=== PATIENT | female | born 1945 | race Caucasian/White ===

== ENCOUNTER 2018-11-10 05:20 | Inpatient (IN) | payer OTHER, MEDICARE ==
[2018-11-01 13:15] LABS: HEMATOCRIT 43.4 % (37.0-47.0); HEMOGLOBIN 14.5 gm/dL (12.0-15.0); MCH 29.6 pg (26.0-34.0); MCHC 33.4 g/dL (28.0-37.0); MCV 88.7 fL (80.0-100.0); RBC 4.89 mil/uL (4.20-5.00); WBC 8.7 thou/uL (4.0-11.0)
[2018-11-01 13:18] LABS: URINE BILIRUBIN NEGATIVE (Negative); URINE BLOOD NEGATIVE (Negative); URINE CLARITY CLEAR; URINE COLOR YELLOW; URINE GLUCOSE-RANDOM* NEGATIVE (Negative); URINE KETONES NEGATIVE (Negative); URINE LEUKOCYTES-REFLEX TRACE (Negative); URINE NITRITE-REFLEX NEGATIVE (Negative); URINE PROTEIN (DIPSTICK) NEGATIVE (Negative); URINE SPECIFIC GRAVITY <= 1.005 (1.005-1.035); URINE UROBILINOGEN 0.2 E.U./dl (0.2-1.0)
[2018-11-01 13:23] LABS: ALBUMIN 4.1 g/dL (3.4-5.0); CALCIUM 10.3 mg/dL (8.5-10.1); CREATININE 0.7 mg/dL (0.6-1.0); POTASSIUM 4.1 mmol/L (3.5-5.1)
[2018-11-01 13:27] LABS: PROTIME 10.2 Seconds (9.3-11.4)
--- NOTE | 2018-11-01 16:12 | EKG ---
[place] [address] [facility] [place] [address] ELECTROCARDIOGRAM REPORT Name: ART NICOLE Room #: [facility]#: [id number] Admission: Attend Phys: Cristian Malcolm MD Discharge: Date of : 47 Report #: [id number] THIS REPORT FOR: //name// [facility] Test Date: 2018-11-01 Test Time: 13:21:58 Pat Name: ART NICOLE Department: Room: Gender: F [employer]: vonnie : 1945 Requested By: Cristian Malcolm Order Number: [id number] MD: Guanakito Ventura Measurements Intervals [place] Rate: 83 P: 54 MD: 152 QRS: 7 QRSD: 91 T: 29 QT: 380 QTc: 447 Interpretive Statements Sinus rhythm Ventricular trigeminy No previous ECG available for comparison Electronically Signed On 11-01-2018 16:12:15 CDT by Guanakito Ventura [email or web address] <ELECTRONICALLY SIGNED> By: Guanakito Ventura MD 11/01/18 1612 1321 1321 Guanakito Ventura MD /[place]
[2018-11-10] VITALS (7 sets, daily range): BP systolic 140–162; BP diastolic 67–82
[~2018-11-10] VITALS: Ht 162.6 cm; Wt 68.9 kg
[~2018-11-10 05:20] MED LIST: ASPIR 8181 M1 PO; CO Q-10100 MG PO; FEMARA2.5 MG PO; GLUCOSAMINE HC500 MG PO; HYDROCHLOROTH12.5 M1 PO; IBUPROFEN 200200 M1 PO; LISINOPRIL40 MG PO; TURMERIC500 M2 PO; VITAMIN B-12500 MCG PO; VITAMIN D-32000 UNIT PO
[2018-11-11 00:30] VITALS: BP 118/57
[2018-11-11 04:26] VITALS: BP 127/69
--- NOTE | 2018-11-11 05:39 | NUR ---
RECEIVED REPORT FROM FRANDY DAY SHIFT RN.PATIENT A/O X 4.COMPLAIN OF LEFT KNEE PAIN.NORCO GIVEN.VERBALIZED PAIN RELIEF.ICEPACK TO INCISION AREA.HEMOVAC NOTED WITH DARK RED DRAINAGE.PT STATES SHE WILL WAIT FOR PT IN AM TO GET HER UP AND WANTS PAIN MEDS BEFORE GETTING UP WITH PT.WILL MONITOR AND CONTINUE POC.
[2018-11-11 07:07] LABS: HEMATOCRIT 32.2 % (37.0-47.0); HEMOGLOBIN 10.7 gm/dL (12.0-15.0); MCH 29.9 pg (26.0-34.0); MCHC 33.4 g/dL (28.0-37.0); MCV 89.6 fL (80.0-100.0); RBC 3.59 mil/uL (4.20-5.00); RDW 14.3 % (10.5-14.5); WBC 12.2 thou/uL (4.0-11.0)
[2018-11-11 07:36] VITALS: BP 127/55
--- NOTE | 2018-11-11 07:48 | O ---
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 PROCEDURE: Left total knee arthroplasty. SURGEON: Cristian Malcolm MD INDICATIONS: This active, independent 73-year-old female complains of progressive left knee pain. Clinical and radiographic evaluation revealed mild varus malalignment with medial compartment narrowing and spurring in all 3 compartments. Findings are consistent with rather severe end-stage degenerative osteoarthritis. She has not seen improvement with time and conservative management. She has elected to go ahead with left total knee arthroplasty. DESCRIPTION OF PROCEDURE: The patient was taken to the operating room where she was placed under general anesthesia. Prophylactic intravenous antibiotics were administered. A left femoral nerve block was also applied. The left lower extremity was meticulously prepped and draped and a thigh tourniquet inflated to 300 mmHg. An anterior longitudinal skin incision was made and carried through the medial retinaculum. The patella was reflected laterally. Marked degenerative change in all 3 compartments was noted. The Finley and Nephew knee system was utilized. The femur seemed best suited for a size 5 femoral component. The tibia was best suited for a size 4 tibial component. Sufficient bone was removed to correct the flexion contracture and varus malalignment. A 9 mm polyethylene insert fit nicely and resulted in full knee extension and flexion well beyond 130 degrees with good stability on varus and valgus stress. The patellar surface was resected and a 32 mm patellar button fit nicely. Appropriate anchor holes were created. The trial components were removed. The bony surfaces were thoroughly irrigated and dried. The intramedullary canal was blocked with bone block on both the femoral and tibial sides. Methyl methacrylate cement was mixed and injected into the porous surface of the proximal tibia. The Finley and Nephew size 4 Pari II left tibial baseplate was then applied. It was inserted in appropriate position and it seated nicely and appeared to be secure. Excess cement was removed from around its margin. A 9 mm Legion cruciate retaining high flexion polyethylene liner was snapped into [address] [address] OPERATIVE REPORT Name: ART NICOLE Room #: 461-P [facility] IN ..#: [id number] Admission: 11/10/18 Attend Phys: Cristian Malcolm MD Discharge: Date of : 47 Report #: [id number] It seated nicely and appeared to be secure. A size-5 left femoral component was then impacted on to the distal femur. Some cement was used distally here as well as the bone is mildly osteoporotic. This component also seemed to seat nicely and appeared stable. Excess cement was removed from around its margin. The patella was inserted using appropriate anchor holes and cement with a patellar clamp. Excess cement was removed from around its margin. Once the cement had fully cured, range of motion, alignment, and stability were assessed and felt to be satisfactory. She does have mild internal rotation of the tibia, which is a preexisting issue; however, her varus malalignment is nicely improved and the knee extends fully and flexes beyond 130 degrees without difficulty. The patella seemed to track nicely. At this point, the tourniquet was deflated. A single Hemovac was left in the wound exiting through a separate stab incision. She is noted to have moderate generalized oozing and she had noted preoperatively that she does seem to bleed and bruise easily. This may be related to her history of aspirin or anti-inflammatory use. Some hemostasis with the cautery was established, but there was still mild oozing throughout the wound during this portion of the procedure. The fascia was closed with multiple #1 Vicryl sutures. The deeper subcutaneous tissues were closed with 0 Monocryl and the more superficial layer was closed with 2-0 Monocryl. The skin was closed with skin dennis. A sterile dressing was applied. The patient was awakened and returned to recovery room in good condition. <ELECTRONICALLY SIGNED> By: Cristian Malcolm MD 11/11/18 0748 1240 1513 Cristian Malcolm MD /nt
[2018-11-11 07:59] LABS: CALCIUM 8.9 mg/dL (8.5-10.1); CREATININE 0.7 mg/dL (0.6-1.0); POTASSIUM 4.6 mmol/L (3.5-5.1)
--- NOTE | 2018-11-11 14:32 | NUR ---
PT ADMITTED RELATED TO LT TOTAL KNEE REPLACEMENT. CM REVIEWED CAHRT AND SPOKE WITH CARE TEAM. CM MET WITH PT AT BEDSIDE THIS DAY. PT IS A&O X4. CM ROLE INTRODCUED. PT INDICATED SHE LIVES IN A DUPLEX ALONE WITH 2 STEPS TO ENTER AND NO STEPS INSIDE. PT INDICATED HER DTR LIVES 3 MINS FROM HER AND THAT SHE IS ABLE TO ASSIST HER UPON DC. 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 PT WILL NEED A FWW FOR USE UPON DC. PT STATED SHE HAS AN OP THERAPY APPINTMENT SET UP AT [facility] PT THURSDAY AT 11:30. PT'S PCP IS LELA GUNTER. CM TO FOLLOW INIDICATED WITH DC PLANNING.
[2018-11-11 14:58] VITALS: BP 130/98
[2018-11-11 19:44] VITALS: BP 153/68
[2018-11-11 20:00] VITALS: BP 153/68
--- NOTE | 2018-11-11 20:54 | NUR ---
ASSUMED CARE OF PT AT APPROX 1000. PT IS ALERT AND ORIENTED X4 AND ABLE TO MAINTAIN 02 SAT >90 ON RA. NAD NOTED. PAIN MEDS ADMINISTERED ORDERED UPON REQUEST. ASSESSMENT CHARTED. PT NEEDS HOME MEDICATIONS RESTARTED. MED REC IS COMPLETE. PT HAS BEEN UPDATED ON POC.
[2018-11-12 04:12] VITALS: BP 135/53
--- NOTE | 2018-11-12 04:42 | NUR ---
ASSESSMENT: PT REMAIN ALERT AND ORIENT TIMES FOUR. DOES HAVE ANXIETY ABOUT MOVING HER LEFT LEG, AND MAKING SENSE OF HER HOSPITAL STAY. PRN PAIN MEDICATION WAS GIVEN REGULARLY AND PT BEGAN TO RATE HER PAIN ON A LOWER SCALE. LEFT KNEE HEMOVAC WAS REMOVED AT 2330 WHILE THE PT WAS SITTING UP IN THE CHAIR. THE ORDER WAS WRITTEN AT 0804 TO HAVE DRAIN REMOVED. DAY SHIFT RN'S DID NOT REMOVE THE DRAIN BECAUSE THE PT WAS SITTING UP IN THE CHAIR AND THEY WERE WAITING FOR THE PT TO GET IN BED. THE OUTPUT WAS SS, 80ML OF DRAINAGE WAS MEASURED AND A PRESSURE DRESSING WAS PLACED OF THE INSERTION SITE. THTH WERE REPLACED AND WERE COMFORTABLE PER PT. VSS, AFEBRILE. PT REQUESTED TO REMAIN IN THE CHAIR ALL NOC LONG. BEAR DRESSING C/D/I. GOOD PROGRESS TOWARDS DC GOALS, WILL CONTINUE TO MONITOR.
[2018-11-12 05:17] LABS: HEMATOCRIT 29.5 % (37.0-47.0); MCH 30.2 pg (26.0-34.0); MCV 88.8 fL (80.0-100.0); RBC 3.32 mil/uL (4.20-5.00); WBC 10.8 thou/uL (4.0-11.0)
[2018-11-12 08:00] VITALS: BP 136/69
--- NOTE | 2018-11-12 13:21 | NUR ---
Received awake on bed. Due medications given as prescribed, able to swallow tablets w/o difficulty. A+Ox4. On room air. With SL at R FA. S/P L Total knee- BEAR dressing in place, C/D/I. Able to ambulate using walker, gait belt and moderate assist. Complained of pain, PRN pain meds given as prescribed. Had PT session today, tolerating well. Reynold stockings and ice packs in place. Vital signs stable. Able to use bedside commode to pass urine.
[2018-11-12 15:00] VITALS: BP 141/78
--- NOTE | 2018-11-12 16:24 | NUR ---
IT IS ANTICPATED THAT PT WILL LIKELY DC OVER THE WEEKEND. PT WAS ISSUED A FWW FOR HOME USE BY PROVIDER [employer]US. PT IS ESTABLISHED WITH AN OP PT APPOINTMENT THURSDAY. CM ABLE TO ASSIST SHOULD ANY NEEDS ARISE.
[2018-11-12 20:25] VITALS: BP 160/85
[2018-11-13 03:40] VITALS: BP 165/88
--- NOTE | 2018-11-13 04:10 | NUR ---
ASSUMED CARE AROUND 1900. AXOX4. THIGH HIGH DARIELA ON SCD ON. DRESSING ON L KNEE CDI. NO S/S ACUTE DISTRESS NOTED OR REPORTED AT THIS TIME. WILL CONT TO MONITOR FOR ANY CHANGES IN CONDITION.
[2018-11-13 05:42] LABS: HEMOGLOBIN 10.1 gm/dL (12.0-15.0); MCH 30.3 pg (26.0-34.0); MCHC 33.8 g/dL (28.0-37.0); MCV 89.5 fL (80.0-100.0); RBC 3.35 mil/uL (4.20-5.00); RDW 14.2 % (10.5-14.5); WBC 8.3 thou/uL (4.0-11.0)
[2018-11-13 07:24] VITALS: BP 154/89
[2018-11-13 09:00] VITALS: BP 154/89
[2018-11-13 15:16] VITALS: BP 155/83
--- NOTE | 2018-11-13 16:10 | NUR ---
Received awake on bed. Due medications given as prescribed. A+Ox4. On room air. With BEAR dressing in place at L knee, C/D/I, no signs of infection noted. Able to go to the bathroom using walker, gait belt, AO1- minimum assist. Complained of pain, due PRN pain medications given as prescribed. With DARIELA socks and ice packs in place. Pt able to sit out on chair. Pt seen by Dr Malcolm, pt to go home tomorrow, discharge summary and instructions put in, discharge orders to be ordered if pt is ok to go home tomorrow. Assisted in ADLs. With SL at R FA- intact.
[2018-11-13 19:47] VITALS: BP 137/72
--- NOTE | 2018-11-14 04:51 | NUR ---
ASSUMED CARE AROUND 1900. AXOX4. L KNEE BEAR DRESSING CDI. NO S/S ACUTE DISTRESS NOTED OR REPORTED AT THIS TIME. WILL CONT TO MONITOR FOR ANY CHANGES IN CONDITION.
[2018-11-14 05:18] LABS: HEMOGLOBIN 9.7 gm/dL (12.0-15.0); MCH 30.1 pg (26.0-34.0); MCHC 33.6 g/dL (28.0-37.0); MCV 89.5 fL (80.0-100.0); RBC 3.24 mil/uL (4.20-5.00); RDW 13.9 % (10.5-14.5); WBC 7.9 thou/uL (4.0-11.0)
[2018-11-14 07:47] VITALS: BP 162/83
[2018-11-14 14:38] VITALS: BP 162/83
--- NOTE | 2018-11-14 15:30 | NUR ---
PT PROGRESSING WELL. WORKED W/ THERAPY TWICE TODAY AND WALKED STEPS. BEAR DSNG INTACT W/ SM DRIED SPOT. EATING AND DRINKING WELL. DTR HERE TO TAKE PT HOME TO HER HOUSE. PT AND DTR MORE CONFIDENT NOW THAT PT IS DOING WELL ENOUGH TO GO HOME.
--- NOTE | 2018-11-15 11:19 | D ---
[facility] [place] [address] DISCHARGE SUMMARY Name: ART NICOLE Cali Room #: 461-P [facility] IN M.R.#: [id number] Admission: 11/10/18 Attend Phys: Cristian Malcolm MD Discharge: 11/14/18 Date of : 47 Report #: [id number] THIS REPORT FOR: //name// CC: Cristian SPENCER unknown DATE OF SERVICE: 11/14/2018 FINAL DIAGNOSIS: End-stage degenerative arthritis, left knee. OPERATIVE PROCEDURE: Left total knee arthroplasty. HISTORY OF PRESENT ILLNESS: This frail, but independent 73-year-old female has progressive left knee pain with some deformity and arthrofibrosis. She has tried conservative measures without clear benefit. She has elected to go ahead with total knee replacement. HOSPITAL COURSE: The patient was admitted and taken to the operating room on 11/10/2018, she underwent left total knee arthroplasty, which she tolerated well. Postoperatively, her course has been largely unremarkable. She has advanced from IV analgesics to oral analgesics and has resumed a regular diet. She has participated with physical therapy and is making slow progress. The knee wound dressing appears to be clean and dry. She is improving in range of motion and strength. She seems to be safe and ready for discharge with family assistance today on 11/14/2018. She will continue activity and ambulation as comfort and strength allows at home. We will plan outpatient therapy next week as well as a followup office visit. DISCHARGE MEDICATIONS: Include, Femara 2.5 mg daily, lisinopril 40 mg daily, hydrochlorothiazide 12.5 mg daily, vitamin D 2000 units daily, multivitamins once every daily, Xarelto 10 mg daily, hydrocodone 5 mg or 10 mg 4 times daily as needed for pain. I have asked the patient or family to call me should there be any problems or questions. We will plan to see her back in 1 week for followup and in 2 weeks for suture removal. <ELECTRONICALLY SIGNED> By: Cristian Malcolm MD 11/15/18 1119 1118 1231 Cristian Malcolm MD /nt
== END 2018-11-14 15:30 | disposition home or self-care (01) | DRG 470 ==
LOC: PRE 05:20 → TBA 09:16 → 4W 09:16 → PRE 11:08 → 4W 17:03
PROVIDERS: Hospitalist; ADMIT Orthopaedic Surgery
PROC: 3E0T3BZ Introduction of Anesthetic Agent into Peripheral Nerves and Plexi, Percutaneous Approach (ICD-10-PCS; principal; 2018-11-10)
PROC: 0SRD0J9 Replacement of Left Knee Joint with Synthetic Substitute, Cemented, Open Approach (ICD-10-PCS; principal; 2018-11-10)
DX: M17.12 Unilateral primary osteoarthritis, left knee (principal); D62 Acute posthemorrhagic anemia; M24.662 Ankylosis, left knee; M21.162 Varus deformity, not elsewhere classified, left knee; I10 Essential (primary) hypertension; E78.5 Hyperlipidemia, unspecified; Z85.3 Personal history of malignant neoplasm of breast; Z90.710 Acquired absence of both cervix and uterus; Z98.42 Cataract extraction status, left eye; Z98.41 Cataract extraction status, right eye; Z79.899 Other long term (current) drug therapy
CPT/HCPCS: 10047; 50010; 50101; 50415; 50954; 51130; 51225; 51412; 53364; 56525; 57095; 57104; 62110; 62900; 64039; 70005